=== PATIENT | male | born 1945 | race Caucasian/White ===

== ENCOUNTER 2017-01-19 07:34 | Day surgery (SDC) | payer OTHER ==
[2017-01-18 12:28] LABS: BASOPHILS 0.4 %; BASOPHILS ABSOLUTE 0.03 10/3/uL (0.0-0.16); EOSINOPHILS 1.9 %; EOSINOPHILS ABSOLUTE 0.14 10/3/uL (0.0-0.53); HEMATOCRIT 34.9 % (40.0-51.0); HEMOGLOBIN 11.9 g/dL (13.6-17.8); IMMATURE GRANULOCYTES 0.1 %; IMMATURE GRANULOCYTES ABSOLUTE 0.01 10/3/uL (0.0-0.11); LYMPHOCYTES ABSOLUTE 1.76 10/3/uL (0.67-4.30); MANUAL DIFF NO %; MEAN CORPUS HGB CONC 34.1 g/dL (32.0-36.0); MEAN CORPUSCULAR HEMOGLOB 29.3 pg (26.0-34.0); MEAN PLATELET VOLUME 8.9 fL (9.2-13.0); MONOCYTES 7.5 %; MONOCYTES ABSOLUTE 0.55 10/3/uL (0.21-1.20); NEUTROPHILS 66.1 %; NEUTROPHILS ABSOLUTE 4.85 10/3/uL (2.02-8.40); PLATELET COUNT 215 10/3/uL (150-400); RBC DISTRIBUTION WIDTH 14.2 % (12.0-16.0); RED CELL COUNT 4.06 10/6/uL (4.7-6.1); WHITE BLOOD CELLS 7.3 10/3/uL (4.5-10.5)
[2017-01-18 12:39] LABS: BUN (BLOOD UREA NITROGEN) 26 MG/DL (6-23); CALCIUM, SERUM 9.1 MG/DL (8.5-10.4); CHLORIDE, SERUM 110 MMOL/L (96-112); CO2 (CARBON DIOXIDE) 29 MMOL/L (24-34); CREATININE 1.49 MG/DL (0.70-1.30); GFR AFRICAN AMERICAN 54 ML/MIN (>=60); GFR NON AFRICAN AMERICAN 47 ML/MIN (>=60); POTASSIUM, SERUM 3.8 MMOL/L (3.5-5.3); SODIUM, SERUM 144 MMOL/L (135-148)
[2017-01-18 12:40] LABS: GLUCOSE, SERUM 182 MG/DL (60-99)
--- NOTE | ~2017-01-19 | OP ---
Record Of Operation [facility] [address] [place]. [address] NAME: MYAH KHANNA : 45 STATUS : REG [facility] PAT#: [id number] AGE: 71 ADM/REG DATE : 01/19/17 MR#: [id number] REPORT SERV DATE: 01/19/17 DICTATED BY: JAVAN WEBER DATE: 01/19/17 REPORT STATUS : Draft TRANSCRIBED BY: MODL DATE: 01/19/17 DATE OF PROCEDURE: 01/19/2017 PREOPERATIVE DIAGNOSES: 1. CT scan indicating high-grade left distal internal carotid artery stenosis, asymptomatic patient. 2. Severe hypertension, on several antihypertensive medications. POSTOPERATIVE DIAGNOSES: 1. Mild stenosis of the distal internal carotid artery above the bifurcation probably 40% or so. 2. Right carotid stenosis also around 40%-50% at most. 3. Left renal artery stenosis estimated 60%-70% and then right inferior renal artery stenosis probably 50%-60%. SURGERY PERFORMED: 1. Arch aortogram with selected left carotid arteriogram of the cervical carotid. 2. Selected angiogram of the right cervical carotid. 3. Abdominal aortogram. DESCRIPTION OF PROCEDURE: The patient was placed under IV sedation. Both groins were prepped and draped in a sterile fashion. Right femoral artery was cannulated with ultrasound direction. Needle, wire, and sheath were placed. The UF catheter placed into the arch and a hand injection done of the arch, which did show that the brachiocephalic vessels were not well, but they could be seen. The patient does have elevated creatinine, and therefore, conservation of contrast was attempted. The left carotid was then cannulated using a JB2 catheter, where a wire was placed into the common and then a glide cath placed into the common carotid artery. An AP angiogram done of the carotid showing that the common carotid bifurcation vessels were open. The internal showed a mild stenosis. There was stenosis of the external and then a lateral angiogram done of the carotid showing again no significant stenosis, some irregularity in the bulb, but certainly no significant stenosis. With this finding, the catheter was removed from the left carotid. The REIC catheter was placed back into the arch and the right carotid was then cannulated with a JB2 catheter and then a glide cath placed out into the common carotid artery. AP angiogram done of the right carotid showing a small dense plaque in the bulb without a significant stenosis on the AP view. The lateral view showing that the common, external, and internal were open. Again irregularity in the bulb, but there was no significant stenosis noted. With this finding, the catheter was removed from the right common carotid artery due to the patient being severely hypertensive on multiple medications. An abdominal aortogram was done using 10 mL of full-strength contrast. This was done, which revealed that the left renal artery does have a stenosis, would appear to be 60 possibly 70% about 1 cm out from the origin. 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 The lower renal showed also with stenosis probably on the order of 60% as well. The aorta itself was patent, it was somewhat irregular. Both iliacs were noted to be normal proximal. With this finding, the sheath was removed and Angio-Seal used for closure and then dry dressing was applied. Record Of Operation [facility] [address] [place]. [address] NAME: MYAH KHANNA : 45 STATUS : REG [facility]#: [id number] AGE: 71 ADM/REG DATE : 01/19/17 MR#: [id number] REPORT SERV DATE: 01/19/17 DICTATED BY: JAVAN WEBER DATE: 01/19/17 REPORT STATUS : Draft TRANSCRIBED BY: LIA DATE: 01/19/17 ESTIMATED BLOOD LOSS: 10-20 mL. The patient tolerated the procedure well and went to recovery room in good condition. MG/LIA Javan Weber M.D. / [id number] CC: Marcin Silverman PAUL E
[~2017-01-19 07:34] MED LIST: APRES25 PO; BRILINTA90 MG PO; BUM1 PO; COREG12 PO; COREG25 PO; COREG6 PO; FISH-EPA1000 MG PO; HALF81 PO; HYDRALAZINE100 MG PO; IMDUR30 PO; INSPRA25 PO; LIPITOR40 PO; MEVACOR PO; NORV10 PO; NOVOLOG SC; NOVOLOGMIX SC; PEP20 PO; PLAVIX PO; PRIN10 PO; PRIN20 PO; Proair Hfa INH; THERGRANM PO
== END 2017-01-19 17:30 | disposition home or self-care (01) ==
LOC: SDC 07:34 → SSU1 14:23
PROVIDERS: Surgery Vascular Surgery
DX: I65.23 Occlusion and stenosis of bilateral carotid arteries (principal); I70.1 Atherosclerosis of renal artery; I13.0 Hypertensive heart and chronic kidney disease with heart failure and stage 1 through stage 4 chronic kidney disease, or unspecified chronic kidney disease; E11.22 Type 2 diabetes mellitus with diabetic chronic kidney disease; N18.3 Chronic kidney disease, stage 3 (moderate); F41.9 Anxiety disorder, unspecified; E78.5 Hyperlipidemia, unspecified; I50.9 Heart failure, unspecified; K21.9 Gastro-esophageal reflux disease without esophagitis; E11.9 Type 2 diabetes mellitus without complications; I25.10 Atherosclerotic heart disease of native coronary artery without angina pectoris; I73.9 Peripheral vascular disease, unspecified; I25.2 Old myocardial infarction; E78.00 Pure hypercholesterolemia, unspecified; Z95.5 Presence of coronary angioplasty implant and graft; Z98.890 Other specified postprocedural states
CPT/HCPCS: 36222; 75625; 80048; 82962; 85025; 93005; A9270-GY; C1760; C1769; C1887; C1894; J0461; J0690; J2370; J3010; Q9967